=== PATIENT | male | born 1985 | race Caucasian/White ===

== ENCOUNTER → 2023-04-06 12:19 | Outpatient (CLI) | payer OTHER, MEDICAID, SELFPAY | PROVIDERS: Referring Provider Family Medicine; Visit Provider Family Medicine | DX: Z13.228 Encounter for screening for other metabolic disorders (principal); Z31.440 Encounter of male for testing for genetic disease carrier status for procreative management; Z31.5 Encounter for procreative genetic counseling | CPT/HCPCS: 36415 ==